=== PATIENT | female | born 1945 | race Caucasian/White ===

== ENCOUNTER 2018-02-16 14:12 | Inpatient (IN) | payer MEDICARE ==
[~2018-02-16] VITALS: Ht 152.4 cm; Wt 70.3 kg
[~2018-02-16 14:12] MED LIST: ADVAIR 100-501 EACH INH; ALEVE220 M1 PO; FLAGYL500 MG PO; NORCO 5-325 TA1 EACH PO; PHENERGAN 25 MG25 M1 PO
[2018-02-16 14:27] VITALS: BP 110/83
[2018-02-16 15:24] LABS: HEMATOCRIT 38.3 % (37.0-47.0); HEMOGLOBIN 12.4 gm/dL (12.0-15.0); MCH 28.9 pg (26.0-34.0); MCHC 32.4 g/dL (28.0-37.0); MCV 89.3 fL (80.0-100.0); MPV 7.9 fl. (7.2-11.1); NUCLEATED RBCS 0 /100WBC; PLATELET COUNT* 182 thou/uL (150-400); RBC 4.29 mil/uL (4.20-5.00); RDW-CV 14.5 % (10.5-14.5); WBC 6.4 thou/uL (4.0-11.0)
[2018-02-16 15:28] LABS: CALCIUM 8.9 mg/dL (8.5-10.1); CREATININE 0.8 mg/dL (0.6-1.3); POTASSIUM 4.4 mmol/L (3.5-5.1)
[2018-02-16 15:33] LABS: ALBUMIN 3.5 g/dL (3.4-5.0); MAGNESIUM 1.8 mg/dL (1.8-2.4); TOTAL BILIRUBIN 0.4 mg/dL (<0.1-1.0); TOTAL PROTEIN 6.9 g/dL (6.4-8.2)
[2018-02-16 15:55] LABS: ABSOLUTE LYMPHOCYTES 0.3 thou/uL (0.8-5.3); ABSOLUTE MONOCYTES 0.1 thou/uL (0.0-1.2); PLATELET ESTIMATE ADEQUATE
[2018-02-16 16:08] LABS: BE 0.8 mmol/L (-2 to +3); HCO3 24.6 mmol/L (22.0-26.0); PCO2 36.4 mmHg (35.0-45.0); pH 7.447 (7.340-7.450)
[2018-02-16 16:10] LABS: PO2 58.7 mmHg (75.0-100.0)
[2018-02-16 17:27] LABS: APTT 20.9 Seconds (25.0-31.3)
[2018-02-16 17:41] LABS: URINE BILIRUBIN NEGATIVE (Negative); URINE BLOOD 3+ (Negative); URINE CLARITY CLEAR; URINE COLOR YELLOW; URINE GLUCOSE-RANDOM NEGATIVE (Negative); URINE KETONES NEGATIVE (Negative); URINE LEUKOCYTES-REFLEX NEGATIVE (Negative); URINE NITRITE-REFLEX NEGATIVE (Negative); URINE PROTEIN NEGATIVE (Negative); URINE SPECIFIC GRAVITY 1.015 (1.005-1.030); URINE UROBILINOGEN 0.2 E.U./dl (0.2-1.0)
[2018-02-16 17:51] LABS: AMP/METHAMP Negative (Negative); BARBITURATES Negative (Negative); BENZODIAZEPINES Negative (Negative); COCAINE Negative (Negative); METHADONE Negative (Negative); OPIATES Negative (Negative); PCP Negative (Negative); THC Negative (Negative)
[2018-02-16 18:08] LABS: SQUAMOUS 0-3 Few /LPF (0-3); URINE WBC-REFLEX 0-5 Rare /HPF (0-5)
[2018-02-16 18:09] LABS: CRYSTALS None Seen /LPF (None Seen); FINE GRANULAR CASTS 0-3 Few /LPF (None Seen); HYALINE CASTS 0-3 Few /LPF (None Seen); MUCUS 0-3 Light strn/LPF (None Seen)
[2018-02-16 20:00] VITALS: BP 122/63
[2018-02-16 20:08] VITALS: BP 138/69
--- NOTE | 2018-02-16 23:32 | NUR ---
PT ADMITTED TO ROOM 215 FROM ER. PT MOVED SELF TO BED WITH NO DIFFICULT, GAIT STEADY. RESP REG AND UNLABORED SKIN W/D NO ACUTE DISRES NOTED. PT ORIENTED TO ROOM, CALL SYSTEM AND BED CONTROLS, PT VERBALIZED GOOD UNDERSTANDING. FAMILY AT BEDISIDE. TELEMETRY PACK APPLIED WITH ALARMS SET. SCEDS APPLIED. VSS. WILL CONITNUE TO MONITOR
[2018-02-17] VITALS: BP 132/59
[2018-02-17 04:00] VITALS: BP 145/75
--- NOTE | 2018-02-17 04:05 | NUR ---
PATIENT RESTING IN BED. BED ALARM ON. BED IN LOW POSITION. CONT. IVF WITHOUT DIFFICULTIES. ACCIDENTLY PULLED IV OUT. NEW ONE STARTED X 1 ATTEMPT IN LT FA. DENIES COMPLAINTS OF PAIN, DISCOMFORT OR SOA. NO SIGS
[2018-02-17 09:30] VITALS: BP 148/82
[2018-02-17 11:44] VITALS: BP 154/77
--- NOTE | 2018-02-17 13:06 | NUR ---
ASSUMED PT CARE AT 0700 PT IS ALERT AND ORIENTED X 4 PT DENIES PAIN OR SOA ON RA, PT IS UP AD GIDEON PT IS NOT A FALL RISK, PT IS SR ON THE MONITOR, PT AROUND 1240 C/O CHILLS TEMP IS APPROPRIATE NO FEVER NOTED, PT IS PLESANT AND COOPERATIVE, PT C/O HEADACHE AROUND 1240 NOTIFIED PHYSICIAN ASKED FOR TYLENOL AWAITING ORDER, WILL CONTINUE TO MONITOR
[2018-02-17 16:00] VITALS: BP 144/72
--- NOTE | 2018-02-17 19:30 | EKG ---
[place] [address] ELECTROCARDIOGRAM REPORT Name: WONG RIDLEY Room: [address] IN [facility]#: [id number] Admission: 02/16/18 Attend Phys: Shanda Lewis MD Discharge: Date of : 41 Report #: [id number] THIS REPORT FOR: //name// [facility] ED Test Date: 2018-02-16 Test Time: 14:41:02 Pat Name: WONG TINSLEY Department: Room: Gender: F Fire Manager: : 1945 Requested By: Layla Fernandez Order Number: [id number] MD: Alli Mason Measurements Intervals [place] Rate: 104 P: 51 ND: 149 QRS: 4 QRSD: 96 T: 56 QT: 349 QTc: 459 Interpretive Statements Sinus tachycardia No previous ECG available for comparison Electronically Signed On 02-17-2018 19:30:29 CDT by Alli Mason [email or web address] <ELECTRONICALLY SIGNED> By: Alli Mason MD, [facility] 02/17/18 1930 1441 1441 Alli Mason MD, FACC /EPI
[2018-02-17 20:52] VITALS: BP 139/59
[2018-02-18] VITALS: BP 147/59
[2018-02-18 04:21] VITALS: BP 121/60
--- NOTE | 2018-02-18 07:02 | NUR ---
PT IS ABLE TO COMMUNICATE HER NEEDS TO STAFF EFFECTIVELY. CURRENT PAIN MEDICATION REGIMEN HAS BEEN ADEQUATE FOR CONTROLLING HER PAIN UP TO THIS TIME. INFECTIOUS DISEASE CONSULTED FOR TODAY.
[2018-02-18 08:25] VITALS: BP 136/73
--- NOTE | 2018-02-18 09:02 | NUR ---
ASSUMED PT. CARE AND RECEIVED REPORT AT 0730. PT A/OX4, VSS, MONITOR ON TRACING SR. PT. STATES HEADACHE IS MUCH IMPROVED, BUT STILL SLIGHTLY PRESENT. ON RA @ 94%. CHEEKS CONTINUE TO BE FLUSHED IN APPEARENCE. FULL ASSESSMENT COMPLETED, REFER TO CHARTING. NS @ 100ML/HR. PT. UP AMBULATING IN ROOM, STEADY ON FEET. WILL CONTINUE WITH PLAN OF CARE.
[2018-02-18 12:00] VITALS: BP 140/72
--- NOTE | 2018-02-18 12:20 | CON ---
[address] [address] CONSULTATION Name: WONG RIDLEY Room: [address] IN .R.#: [id number] Admission: 02/16/18 Attend Phys: Shanda Lewis MD Discharge: Date of : 41 Report #: [id number] THIS REPORT FOR: //name// CC: Shanda Michel DATE OF SERVICE: 02/18/2018 INFECTIOUS DISEASE CONSULTATION ATTENDING PHYSICIAN: Dr. Silvestre. REASON FOR EVALUATION: Fevers with rigors, suspected sepsis. HISTORY OF PRESENT ILLNESS: Chart reviewed, the patient examined. This is a 72-year-old with history of asthma who had a fairly abrupt onset of generalized shaking, certainly consistent with rigors; development of fevers and cyclical pattern involving sweats as well. This was noted 24-48 hours prior to her admission. She has some other issues such as some back pain, neck pain, headache, primarily right-sided and blurred vision. She denies any particular exposure history: No recent travel, no animal exposure, no arthropod exposure, no dietary indiscretion. Evaluation thus far has been fairly unremarkable. Chest x-ray was normal. Blood cultures were sterile thus far. Urinalysis was unrevealing as well. She was empirically placed on no antibiotics. Clinically, she has improved. She had a brief episode yesterday. She is not encephalopathic. ALLERGIES: CODEINE, WHICH CAUSES ITCHING. CURRENT MEDICATIONS: Include famotidine, promethazine, p.r.n. analgesics, antiemetics, levalbuterol and budesonide. PAST MEDICAL HISTORY: Notable for asthma, history of hypertension, previous hysterectomy, oophorectomy and back surgery. SOCIAL HISTORY: Nonsmoker, no ethanol. FAMILY HISTORY: Noncontributory. REVIEW OF SYSTEMS: As above. On examination, she denies any significant gastrointestinal-related complaints. PHYSICAL EXAMINATION: GENERAL: She is alert, cooperative, animated. She is not overtly distressed presently. VITAL SIGNS: Temperature 97.8. Review of T-max is 101.7 [place] [address] CONSULTATION Name: WONG RIDLEY Room: [address]#: [id number] Admission: 02/16/18 Attend Phys: Shanda Lewis MD Discharge: Date of : 41 Report #: [id number] 02/16/2018. Pulse 73, respirations 18 and blood pressure 136/73. SKIN: Warm, dry. No rashes. HEENT: Otherwise, unremarkable. NECK: Supple. LUNGS: Clear to auscultation. HEART: Regular. I do not appreciate a murmur. ABDOMEN: Soft, nontender and nondistended. EXTREMITIES: No cyanosis. GENITOURINARY: Deferred. RECTAL: Deferred. LABORATORY DATA: Blood cultures are sterile thus far, collected on mid-afternoon on 02/16/2018. Chest x-ray showed no acute process. Venous Doppler of the lower extremities showed no evidence bilaterally of deep venous thrombosis. CTA chest PE protocol, no evidence of pulmonary embolus or aortic dissection. Urinalysis 0-5 white cells. ABGs: pH of 7.447, pCO2 of 36.4, pO2 of 58.7 on room air. CBC: White count of 6.4, H and H 12.4 and 38.3 and platelets of 182,000. Differential showed lymphocytopenia of 300. Lactic acid 1.7. CT head showed no evidence of acute intracranial abnormality. LFTs unremarkable. Albumin of 3.5. Total protein 6.9. ASSESSMENT AND PLAN: Febrile illness with what sounds like true rigors. Certainly evidence would favor infectious etiology lacking a site of pyogenic infection at this point. It is reasonable to withhold the antibiotics. We will see how she does. It may well be viral etiology that is supplemented. She is to notify us with any change in her status. We will continue review results. <ELECTRONICALLY SIGNED> By: Sina Ramirez MD 02/18/18 1220 1036 1201Jorobert Ramirez MD /nt
--- NOTE | 2018-02-18 14:14 | NUR ---
Pt is A&O. Resides at home with her . Strong support sx. No DME. No hx of HH or SNF. ID consulted. [place]. Following.
[2018-02-18 16:00] VITALS: BP 162/66
--- NOTE | 2018-02-18 18:50 | NUR ---
PT. STABLE THROUGH OUT SHIFT. PT. REMAINS AFEBRILE. CONTINUE SIWHT SLIGHT HEADACHE. HOURLY ROUNDING COMPLETED FOR PT. SAFETY. PT. AT BEDSIDE. ANTICIPATE DC TOMORROW. PT. NOW MED/SURG STATUS.
[2018-02-18 20:00] VITALS: BP 143/59
[2018-02-19] VITALS: BP 146/66
[2018-02-19 04:00] VITALS: BP 143/71
--- NOTE | 2018-02-19 04:36 | NUR ---
ASSUMED PT CARE AT 19:15. REPORT RECEIVED FROM NURSE. PT IS ALERT, AWAKE, ORIENTED X 4. MEDSURG , O2 SATURATION IS 96% ON RA. VITALS WITHIN NORMAL LIMIT. NS INFUSING AT 100CC/HR. IV LINE IS PATENT. MEDICATIONS WERE ADMINISTERED ORDERED. WELL SLEEPING PILL. PT IS UP AD GIDEON. SHE SLEPT MOST OF THE NIGHT. WILL CONTINUE TO MONITOR.
[2018-02-19 05:12] LABS: ABSOLUTE LYMPHOCYTES 0.8 thou/uL (0.8-5.3); ABSOLUTE MONOCYTES 0.2 thou/uL (0.0-1.2); ABSOLUTE NEUTROPHILS 7.2 thou/uL (1.6-8.1); BASOPHILS 0.1 %; HEMATOCRIT 35.2 % (37.0-47.0); HEMOGLOBIN 11.6 gm/dL (12.0-15.0); MCH 29.2 pg (26.0-34.0); MCHC 32.9 g/dL (28.0-37.0); MCV 88.8 fL (80.0-100.0); MONOCYTES 2.4 %; MPV 8.3 fl. (7.2-11.1); NUCLEATED RBCS 0 /100WBC; PLATELET COUNT* 206 thou/uL (150-400); POLYS 87.5 %; RBC 3.97 mil/uL (4.20-5.00); RDW-CV 14.3 % (10.5-14.5); WBC 8.2 thou/uL (4.0-11.0)
[2018-02-19 05:39] LABS: CALCIUM 8.6 mg/dL (8.5-10.1); CREATININE 0.6 mg/dL (0.6-1.3); PHOSPHORUS* 3.3 mg/dL (2.5-4.9)
[2018-02-19 08:00] VITALS: BP 152/63
--- NOTE | 2018-02-19 08:22 | NUR ---
ASSUMED PT CARE AT 0730, FULL ASSESMENT DONE CHARTED. PT A/O X4, DENIES CHILLS, C/O SMALL AMOUNT OF BACK PAIN, SCHEDULED NAPROXIN GIVEN. PT UP AD GIDEON TAKING WALKS IN CORTES. SHE IS ASKING IF SHE IS GOING HOME TODAY. PT WAITING ON DR TO SEE HER. VSS, M/S STATUS, FALL PRECAUTIONS IN PLACE, WILL CONTINUE WITH PLAN OF CARE.
[2018-02-19 13:51] VITALS: BP 152/63
[2018-02-19] MEDS ORDERED: APAP650 PO (14:05)
[2018-02-19] MEDS ORDERED: DULCOLAX5 MG PO (14:06)
[2018-04-08] MEDS ORDERED: PROAIR HFA8.5 GM INH (12:30)
[2018-04-08] MEDS ORDERED: MULTI VITAMIN1 EACH PO (12:31)
[2018-04-08] MEDS ORDERED: PROBIOTIC1 EAC1 PO (12:31)
[2018-04-08] MEDS ORDERED: CRANBERRY200 MG PO (12:31)
[2018-04-08] MEDS ORDERED: VITAMIN D3400 UNIT PO (12:32)
[2018-04-08] MEDS ORDERED: COQ-10100 MG PO (12:32)
[2018-04-08] MEDS ORDERED: LISINOPRIL10 MG PO (12:32)
== END 2018-02-19 14:20 | disposition home or self-care (01) | DRG 871 ==
LOC: M.ERS 14:12 → M.2W 18:27 → M.TBA-ER 18:27 → M.2W 20:00
PROVIDERS: Internal Medicine; Personal Emergency Response Attendant; ADMIT Internal Medicine
DX: A41.89 Other specified sepsis (principal); J96.00 Acute respiratory failure, unspecified whether with hypoxia or hypercapnia; R50.9 Fever, unspecified; J45.909 Unspecified asthma, uncomplicated; I10 Essential (primary) hypertension; K59.00 Constipation, unspecified; Z90.710 Acquired absence of both cervix and uterus; Z79.899 Other long term (current) drug therapy; Z88.6 Allergy status to analgesic agent; Z80.0 Family history of malignant neoplasm of digestive organs; Z90.721 Acquired absence of ovaries, unilateral

== ENCOUNTER → 2018-04-28 | Outpatient (CLI) | payer MEDICARE ==
[2018-04-17 09:18] LABS: ABSOLUTE EOSINOPHILS 0.1 thou/uL (0.0-0.7); ABSOLUTE LYMPHOCYTES 1.2 thou/uL (0.8-5.3); ABSOLUTE MONOCYTES 0.2 thou/uL (0.0-1.2); ABSOLUTE NEUTROPHILS 1.6 thou/uL (1.6-8.1); BASOPHILS 0.9 %; EOSINOPHILS 2.4 %; HEMATOCRIT 37.9 % (37.0-47.0); HEMOGLOBIN 12.3 gm/dL (12.0-15.0); LYMPHOCYTES 38.2 %; MCH 28.3 pg (26.0-34.0); MCHC 32.4 g/dL (28.0-37.0); MCV 87.2 fL (80.0-100.0); MONOCYTES 6.5 %; MPV 7.4 fl. (7.2-11.1); NUCLEATED RBCS 0 /100WBC; PLATELET COUNT* 220 thou/uL (150-400); RBC 4.34 mil/uL (4.20-5.00); RDW-CV 15.2 % (10.5-14.5); WBC 3.1 thou/uL (4.0-11.0)
[2018-04-17 09:34] LABS: APTT 23.1 Seconds (25.0-31.3); PROTIME 9.8 Seconds (9.20-11.50)
[2018-04-17 09:52] LABS: ALBUMIN 3.3 g/dL (3.4-5.0); CALCIUM 8.7 mg/dL (8.5-10.1); CREATININE 0.7 mg/dL (0.6-1.3); POTASSIUM 3.8 mmol/L (3.5-5.1); TOTAL BILIRUBIN 0.2 mg/dL (<0.1-1.0); TOTAL PROTEIN 6.7 g/dL (6.4-8.2)
[2018-04-17 10:15] LABS: ESR (SEDRATE) 10 mm/hr (0-30)
[~2018-04-28] VITALS: Ht 152.4 cm; Wt 72.1 kg
[~2018-04-28] MED LIST changes: +ALEVE220 MG PO; +APAP650 PO; +COQ-10100 MG PO; +CRANBERRY200 MG PO; +DULCOLAX5 MG PO; +ELIQUIS5 MG PO; +HYDROCODONE-AP1 EAC6 PO; +LISINOPRIL10 MG PO; +MULTI VITAMIN1 EACH PO; +OXYCODONE HCL 55 MG PO; +PROAIR HFA8.5 GM INH; +PROBIOTIC1 EAC1 PO; +TRAMADOL 50 MG50 MG PO; +VITAMIN D3400 UNIT PO
== END ==
LOC: M.LAB 08:26 → M.PRE 04-29 06:44 → EDSTATUS 04-29 08:24 → M.PRE 04-29 14:40
PROVIDERS: Orthopaedic Surgery
DX: M17.11 Unilateral primary osteoarthritis, right knee (principal); I10 Essential (primary) hypertension; J45.909 Unspecified asthma, uncomplicated; M19.90 Unspecified osteoarthritis, unspecified site; Z90.710 Acquired absence of both cervix and uterus; Z90.721 Acquired absence of ovaries, unilateral; Z79.899 Other long term (current) drug therapy

== ENCOUNTER 2018-05-05 08:02 | Inpatient (IN) | payer MEDICARE ==
[~2018-05-05] VITALS: Ht 152.4 cm; Wt 72.1 kg
--- NOTE | ~2018-05-05 | OP ---
[address] [address] OPERATIVE REPORT Name: WONG RIDLEY Room: [address] IN .R.#: [id number] Admission: 05/05/18 Attend Phys: Chayito Travis Discharge: Date of : 41 Report #: [id number] THIS REPORT FOR: //name// CC: Ilia Silvestre DATE OF SERVICE: 05/05/2018 PREOPERATIVE DIAGNOSIS: Right knee degenerative joint disease, advanced. POSTOPERATIVE DIAGNOSIS: Right knee degenerative joint disease, advanced. PROCEDURE: Right total knee arthroplasty. SURGEON: Ilia Reddy DO PROGRAMMER DEVELOPER: Jean Carlos Jordan DO ANESTHESIA: General with preoperative block. ANTIBIOTICS: 1 gram vancomycin IV preoperatively. BLOOD LOSS: 50 mL. FLUIDS: 1250 mL of lactated Ringer's. COMPLICATIONS: None. SPECIMENS: None. DRAINS: None. CONDITION: The patient stable to PACU. IMPLANTS: Valdo Persona knee, CR femoral component size 6, size D tibial component, 14 mm medial congruent polyethylene, 32 mm patella, all polyethylene. INDICATION FOR PROCEDURE: The patient is a well-known patient of mine who presents to [facility] for right total knee arthroplasty. She has failed conservative measures. After failing conservative measures, we had multiple talks on 2 different occasions on total knee arthroplasty. I discussed with her risks and complications of going for surgery not only then, but today as well. She acknowledged and accepted those risks, gave verbal and written consent to proceed. [address] [address] OPERATIVE REPORT Name: WONG RIDLEY Room: [facility] ADM IN M.R.#: [id number] Admission: 05/05/18 Attend Phys: Chayito Travis Discharge: Date of : 41 Report #: [id number] DESCRIPTION OF PROCEDURE: I marked the right lower extremity in the presence of the operative team members. Everyone agreed this was correct. Anesthesia at that point in time performed a block. She was then transferred to the operative suite where a briefing was performed indicating correct patient, procedure, site, antibiotics and implants were present and sterile. All team members agreed. She was transferred over to the operating table in supine position, well-padded and secured. General anesthetic administered. A well-padded tourniquet was placed proximally on the right lower extremity, which was then sterilely prepped and draped in standard fashion. Timeout was performed indicating correct patient, procedure, site, antibiotics and implants were present and sterile. All team members agreed. We inflated the tourniquet to 290 mmHg. Standard incision for total knee arthroplasty midline longitudinal, scalpel through skin and careful soft tissue dissection down maintaining full thickness flaps and not performing any undue dissection. A second scalpel was used to perform a medial parapatellar arthrotomy. This was a varus knee therefore medial periosteal sleeve was advanced. We removed all the meniscus we could see, took the knee into flexion, debrided the fat pad, protected the patellar tendon throughout the case. Hohmann retractors placed to protect collaterals, inserted our drill at the standard position along the femur for intramedullary guide placement. Guide was then placed parallel to our femoral condyle. She was short of extension prior to surgery; therefore we took an extra 2 off of the distal femoral cut, pinned this into the appropriate position. Oscillating saw was used to perform neck cut. We then removed bone, block, pins, used our posterior referencing guide to size, which was then sized for a size 6. We pinned that cutting block into position. First, we drilled the holes for the cutting block in the appropriate amount of external rotation based off Vina's line and epicondylar access. Once we pinned our cutting block into position, we checked with an everardo wing. This was appropriate. We then used an oscillating saw to perform all four cuts. This was the appropriate sizing. Removed the pin block and bone, turned our attention to the tibia, brought the knee into flexion and placed a PCL retractor to get the tibia out into the surgical field. At that point in time, we then placed our extramedullary guide, 10 off of the high side, made sure that the extramedullary guide was in the appropriate position paralleling the crest, appropriate amount of slope and down the center of the talus. With this held in that position, we then placed a third pin to hold this into position. Oscillating saw was used to perform neck cut, removed the cut and then soft tissue, cleaned out any posterior osteophytes. We placed our tibial trial, a size D was appropriate, pinned this into position in the appropriate amount of external rotation based off the one-third aspect of the tibial tubercle, checked with a drop beny. We then inserted our femur in an appropriately lateralized position. This was sitting flush. We then began placing our trial spacer block starting at a 10 and worked up to a size 14. We tested throughout all planes and it was very stable including varus, valgus and mid flexion. At that point in time, we freehand cut our patella. Prior to cut, we measured with caliper and only took the amount of bone that the polyethylene would replace. Double checked that [address] [place] [address] OPERATIVE REPORT Name: WONG RIDLEY Room: [place] [address] ADM IN M.R.#: [id number] Admission: 05/05/18 Attend Phys: Chayito Travis Discharge: Date of : 41 Report #: [id number] with a caliper after our freehand cut and then drilled for our trial, 32 and in appropriately medialized position. All trial components were in place at this time. Patella was tracking excellent. All components were tracking nicely. Rotation was appropriate, stable throughout all planes including varus, valgus and mid flexion. At this point in time, we removed the patellar component, drilled our femoral pegs, removed this. We irrigated and got the bone to a clean, dry surface for cementing. Cement was mixed on the back table per standard protocol. Final implant timeout had been performed and the final implants were thrown on the back table with the exception of the polyethylene. At this point in time, we then placed cement onto the backside of the tibia. The tibial component as well as the tibia itself, engaged the tibia appropriately and removed excess cement. Cement was placed onto the femur and on the backside of the femoral component and engaged this into its appropriate position with excess cement removed. Same procedure was done for the patella with the patellar clamp. We placed a 14 polyethylene trial and held the knee in extension while the cement cured. Once the cement had cured, we then took the range of motion. This 14 was excellent. It had full flexion, full extension and excellent stability throughout all planes including varus, valgus and mid flexion. At that point in time, we then let down the tourniquet. Total tourniquet time was 68 minutes. Trial component was removed, irrigated with normal saline, cauterized our corners to maintain hemostasis, checked for excess cement and removed any, thoroughly irrigated with normal saline and cleaned the tibial baseplate. At this point in time, we engaged the final polyethylene after this was thrown from an implant time-out, medial Congruent size 14 into the tibial tray, engaged this fully. This was clicked into place. With all final components in place at this time, we took through range of motion. Patella was tracking nicely. All components were in appropriate rotation, full flexion, full extension and good stability throughout all planes including varus, valgus and mid flexion. We used our orthopedic cocktail, irrigated with normal saline thoroughly, placed 1 gram of vancomycin powder into the joint. We then closed our quad tendon and capsule with [id number] interrupted #1 Vicryls and oversewn with a #2 Stratafix deep with full closure of the capsule and tendon. We then took the range of motion, no impingement, good stability of our closure. The knee continued to track excellently with full range of motion. We irrigated the subcutaneous layer with normal saline and closure was with 2-0 Monocryl buried deep in a running subcuticular stitch with 3-0 Stratafix and Dermabond glue over the skin. Debriefing was performed where we confirmed the procedure, blood loss and that all counts were correct and final. All team members agreed. A sterile silver impregnated dressing was applied, placed into a LIBORIO hose in that extremity as well as the nonoperative leg. She was then extubated and transferred off the operating table and taken to PACU in stable condition. POSTOPERATIVE COURSE AND EVALUATION: I spoke with her and daughter per her wishes, addressed any questions they had. They thanked me for my time and efforts. She was resting in PACU, stable vital signs, pain controlled, [address] [address] OPERATIVE REPORT Name: WONG RIDLEY Room: [facility] IN [facility]#: [id number] Admission: 05/05/18 Attend Phys: Chayito Travis Discharge: Date of : 41 Report #: [id number] neurovascularly intact distally in the right lower extremity, dressing clean, dry and intact. She will be admitted for medical management, postoperative pain control, switching to oral as soon as possible. PT, OT. She is weightbear as tolerated. Vancomycin IV, pharmacy to dose. She will receive DVT prophylaxis, both pharmacologic and mechanical. PACU films showed no fracture, dislocation and good alignment and fit of the prosthesis. By: [id number] Reddy DO /nt
[~2018-05-05 08:02] MED LIST changes: -ALEVE220 MG PO; -ELIQUIS5 MG PO; -HYDROCODONE-AP1 EAC6 PO; -OXYCODONE HCL 55 MG PO; -TRAMADOL 50 MG50 MG PO
[2018-05-05 08:56] VITALS: BP 150/78
[2018-05-05 19:45] VITALS: BP 144/68
[2018-05-05 23:29] VITALS: BP 122/54
[2018-05-06 03:47] VITALS: BP 131/65
[2018-05-06 04:32] LABS: HEMATOCRIT 33.5 % (37.0-47.0); HEMOGLOBIN 10.8 gm/dL (12.0-15.0)
[2018-05-06 09:00] VITALS: BP 97/48
[2018-05-06 12:57] VITALS: BP 102/54
[2018-05-06 16:14] VITALS: BP 131/60
[2018-05-06 16:38] LABS: CALCIUM 9.2 mg/dL (8.5-10.1); CREATININE 0.8 mg/dL (0.6-1.3); POTASSIUM 4.6 mmol/L (3.5-5.1)
[2018-05-06 20:30] VITALS: BP 139/61
[2018-05-07 01:30] VITALS: BP 139/61
[2018-05-07 04:01] LABS: HEMOGLOBIN 10.3 gm/dL (12.0-15.0); MCH 28.4 pg (26.0-34.0); MCHC 32.3 g/dL (28.0-37.0); MCV 87.8 fL (80.0-100.0); MPV 7.6 fl. (7.2-11.1); RBC 3.64 mil/uL (4.20-5.00); RDW-CV 15.2 % (10.5-14.5); WBC 7.6 thou/uL (4.0-11.0)
[2018-05-07 04:17] LABS: CALCIUM 8.1 mg/dL (8.5-10.1); CREATININE 0.5 mg/dL (0.6-1.3); MAGNESIUM 1.6 mg/dL (1.8-2.4)
[2018-05-07 07:55] VITALS: BP 148/71
[2018-05-07 17:22] VITALS: BP 149/82
[2018-05-07 20:00] VITALS: BP 137/70
[2018-05-07] MEDS ORDERED: TRAMADOL 50 MG50 MG PO (22:30)
[2018-05-07] MEDS ORDERED: ALEVE220 MG PO (22:30)
[2018-05-07] MEDS ORDERED: HYDROCODONE-AP1 EAC6 PO (22:30)
[2018-05-07] MEDS ORDERED: ELIQUIS5 MG PO (22:30)
[2018-05-07] MEDS ORDERED: OXYCODONE HCL 55 MG PO (22:30)
[2018-05-08] VITALS: BP 113/55
[2018-05-08 04:00] VITALS: BP 127/58
[2018-05-08 04:24] LABS: HEMATOCRIT 28.5 % (37.0-47.0); HEMOGLOBIN 9.4 gm/dL (12.0-15.0); MCH 28.8 pg (26.0-34.0); MPV 7.8 fl. (7.2-11.1); RBC 3.28 mil/uL (4.20-5.00); RDW-CV 15.5 % (10.5-14.5); WBC 6.6 thou/uL (4.0-11.0)
[2018-05-08 04:36] LABS: CALCIUM 8.3 mg/dL (8.5-10.1); CREATININE 0.7 mg/dL (0.6-1.3); POTASSIUM 3.9 mmol/L (3.5-5.1)
[2018-05-08 08:00] VITALS: BP 136/67
[2018-05-08 16:00] VITALS: BP 136/66
[2018-05-08 22:00] VITALS: BP 107/52
[2018-05-09] VITALS: BP 147/67
[2018-05-09 04:00] VITALS: BP 140/75
[2018-05-09 08:15] VITALS: BP 145/64
[2018-05-09 13:44] VITALS: BP 145/64
[2018-05-09 16:59] VITALS: BP 145/64
== END 2018-05-09 14:30 | DRG 470 ==
LOC: M.ORTHSURG 08:02 → M.TBA 08:02 → M.PRE 11:59 → M.ORTHSURG 17:32
PROVIDERS: Internal Medicine; Orthopaedic Surgery; ADMIT Internal Medicine
PROC: 0SRC0J9 Replacement of Right Knee Joint with Synthetic Substitute, Cemented, Open Approach (ICD-10-PCS; principal; 2018-05-05)
DX: M17.11 Unilateral primary osteoarthritis, right knee (principal); I10 Essential (primary) hypertension; G89.29 Other chronic pain; M54.9 Dorsalgia, unspecified; Z88.6 Allergy status to analgesic agent; Z88.8 Allergy status to other drugs, medicaments and biological substances; Z90.710 Acquired absence of both cervix and uterus; Z98.42 Cataract extraction status, left eye; Z98.41 Cataract extraction status, right eye; Z80.8 Family history of malignant neoplasm of other organs or systems; Z79.899 Other long term (current) drug therapy; Z28.21 Immunization not carried out because of patient refusal